=== PATIENT | male | born 1970 | race Caucasian/White ===

== ENCOUNTER 2019-02-07 21:25 | Emergency (ER) | payer OTHER ==
[~2019-02-07] VITALS: Ht 170.2 cm; Wt 90.0 kg
[2019-02-07 21:31] VITALS: Ht 170.2 cm; Wt 90.0 kg
[2019-02-07] MEDS ORDERED: CYCLOBENZAPRINE10 MG PO (22:26)
[2019-02-07] MEDS ORDERED: VISTARIL25 MG PO (22:26)
[2019-02-07] MEDS ORDERED: VOLTAREN75 MG PO (22:26)
[2019-02-07 23:42] VITALS: BP 121/82
== END 2019-02-07 23:14 | disposition home or self-care (01) ==
LOC: D.ER 21:25
DX: F41.8 Other specified anxiety disorders (principal); F43.10 Post-traumatic stress disorder, unspecified; S49.91XA Unspecified injury of right shoulder and upper arm, initial encounter; V49.69XA Unspecified car occupant injured in collision with other motor vehicles in traffic accident, initial encounter